=== PATIENT | male | born 1980 | race Caucasian/White ===

== ENCOUNTER 2017-09-16 08:48 | Emergency (ER) | payer BC ==
[2017-09-16] MEDS ORDERED: KETOROLAC 30 MG/ML INJ ONE (09:14)
[2017-09-16] MEDS ORDERED: CYCLOBENZAPRINE 10 MG TAB ONE (09:14)
[2017-09-16 09:54] LABS: Urine Blood TRACE (NEG); Urine Glucose NEGATIVE (NEG); Urine Protein NEGATIVE (NEG); Urine pH 5.5 (5.0-7.0)
--- NOTE | 2017-09-16 10:37 | ER ---
Nurse's Notes [facility] Name: Nghia Downs Age: 37 yrs Sex: Male : 1980 Arrival Date: 09/16/2017 Time: 08:50 Bed 18 Private MD: Diagnosis: Low back pain Presentation: 09/16 08:53 Presenting complaint: Patient states: low back pain since yesterday. Transition of ss care: patient was not received from another setting of care. Onset of symptoms was September 15, 2017. Care prior to arrival: None. 08:53 Method Of Arrival: Ambulatory ss 08:53 Acuity: BART 4 ss Historical: - Allergies: 08:54 No Known Allergies; ss - Home Meds: 08:54 None [Active]; ss - PMHx: 08:54 None; ss - PSHx: 08:54 L ankle; Vasectomy; ss - Immunization history:: Adult Immunizations up to date. - Social history:: Smoking status: Patient uses tobacco products, smokes one pack cigarettes per day. Screenin:27 Abuse screen: Denies threats or abuse. Nutritional screening: No deficits noted. em Tuberculosis screening: No symptoms or risk factors identified. Fall Risk None identified. Assessment: 09:24 General: Appears in no apparent distress. uncomfortable, Behavior is calm, cooperative, em Reports slipping with a bag of charcoal in hand and twisted and hurt lower back, denies numbness or tingling to lower extremities, rates 8/10. Pain: Pain currently is 8 out of 10 on a pain scale. Neuro: Level of Consciousness is awake, alert, obeys commands, Oriented to person, place, time, situation, Gait is unsteady, Speech is normal, Intact. Cardiovascular: Capillary refill < 3 seconds Patient's skin is warm and dry. Respiratory: Airway is patent Respiratory effort is even, unlabored, Respiratory pattern is regular, symmetrical. GI: Abdomen is flat. : Urine is. EENT: No signs and/or symptoms were reported regarding the EENT system. Derm: Skin is intact, Skin is pink, warm \T\ dry. Musculoskeletal: Range of motion: intact in all extremities. 09:30 General: The previous assessment is accurate, call light remains within reach. ss 10:23 Reassessment: Patient appears in no apparent distress at this time. Patient and/or em family updated on plan of care and expected duration. Pain level reassessed. Patient is alert, oriented x 3, equal unlabored respirations, skin warm/dry/pink. Patient denies pain at this time. Patient states feeling better. Vital Signs: 08:54 BP 146 / 111; Pulse 84; Resp 16; Temp 98.2(TE); Pulse Ox 100% on R/A; Weight 99.79 kg; Height 6 ft. 0 in. (182.88 cm); Pain 8/10; 09:28 BP 134 / 97; Pulse 88; Resp 18; Pulse Ox 99% on R/A; Pain 8/10; em 10:30 BP 128 / 88; Pulse 57; Resp 18; Pulse Ox 99% on R/A; Pain 5/10; em 08:54 Body Mass Index 29.84 (99.79 kg, 182.88 cm) ED Course: 08:50 Patient arrived in ED. tw3 08:52 [facility]ani Che [facility] 08:52 Davey Armas MD is Attending Physician. rh1 08:54 Triage completed. ss 08:54 Arm band placed on right wrist. 08:57 Danial Vigil LVN is Primary Nurse. em 09:27 Patient has correct armband on for positive identification. Bed in low position. Call em light in reach. Side rails up X2. 10:43 No provider procedures requiring assistance completed. Patient did not have IV access em during this emergency room visit. Administered Medications: 09:23 Drug: Flexeril 10 mg Route: PO; em 10:42 Follow up: Response: No adverse reaction; Pain is decreased em 09:23 Drug: Ketorolac 60 mg Route: IM; Site: right gluteus; em 10:42 Follow up: Response: No adverse reaction; Pain is decreased em Outcome: 10:36 Discharge ordered by MD. rh1 10:44 Discharged to home ambulatory. em 10:44 Condition: good 10:44 Discharge instructions given to patient, Instructed on discharge instructions, follow up and referral plans. medication usage, Demonstrated understanding of instructions, follow-up care, medications, Prescriptions given X 2. 10:45 Patient left the ED. em Signatures: Danial Vigil LVN LVN em Kimberley Edmondson RN RN Che, Rani, SALESPERSON FLOOR COVERINGS SALESPERSON FLOOR COVERINGS rh1 Roland, Tia tw3
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
== END 2017-09-16 10:45 | disposition home or self-care (01) ==
LOC: ER 08:48
DX: M54.5 Low back pain (principal); F17.210 Nicotine dependence, cigarettes, uncomplicated; X50.1XXA Overexertion from prolonged static or awkward postures, initial encounter; Y93.01 Activity, walking, marching and hiking; Y92.9 Unspecified place or not applicable
CPT/HCPCS: 81003; 96372; 99283